=== PATIENT | male | born 1960 | race Two or more races ===

== ENCOUNTER 2017-06-12 17:23 | Emergency (ER) | payer MEDICAID ==
[~2017-06-12] VITALS: Ht 167.6 cm; Wt 59.9 kg
[2017-06-12 18:26] LABS: Eosinophils # (auto) 0.1 uL; Lymphocytes # (auto) 0.7 uL; Monocytes # (auto) 0.5 uL; Neutrophils # (auto) 5.3 uL; Nucleated Red Blood Cells % 0.1 %
[2017-06-12 18:28] LABS: Basophils # (auto) 0.1 uL; Basophils % (auto) 0.9 % (0.0-2.0); Hematocrit 43.1 % (41.0-53.0); Hemoglobin 14.4 g/dL (13.5-17.5); Mean Corpuscular Hemoglobin 33.6 pg (28.0-32.0); Mean Corpuscular Hgb Conc. 33.3 g/dL (32.0-36.0); Mean Corpuscular Volume 100.7 fL (80.0-100.0); Monocytes % (auto) 7.4 % (0.0-12.0); Neutrophils % (auto) 78.7 % (37.0-80.0); Platelet Count (auto) 349 10^3/uL (140-450); Red Blood Cells 4.28 10^6/uL (4.5-5.90); Red Cell Distribution Width 17.1 % (11.8-14.3); White Blood Cell 6.8 10^3/uL (4.4-10.8)
[2017-06-12 18:41] LABS: Albumin 3.1 g/dL (3.4-5.0); Calcium 8.5 mg/dL (8.5-10.1); Potassium 4.4 mmol/L (3.5-5.1)
[2017-06-12 18:49] LABS: BUN/Creatinine Ratio 3.2; Bilirubin, Total 0.5 mg/dL (0.2-1.0); Total Protein 7.5 g/dL (6.4-8.2)
[2017-06-12 22:27] VITALS: BP 140/77
== END 2017-06-12 22:29 | disposition left against medical advice (07) ==
LOC: ER 17:40
DX: M79.675 Pain in left toe(s) (principal); Z53.21 Procedure and treatment not carried out due to patient leaving prior to being seen by health care provider
CPT/HCPCS: 36415; 80053; 85025; 87040

== ENCOUNTER 2017-07-25 16:12 | Inpatient (IN) | payer MEDICARE, MEDICAID ==
[~2017-07-25] VITALS: Ht 167.6 cm; Wt 65.5 kg
[2017-07-25 16:48] LABS: Basophils # (auto) 0.1 uL; Basophils % (auto) 0.7 % (0.0-2.0); Eosinophils # (auto) 0.2 uL; Eosinophils % (auto) 2.3 % (0.0-7.0); Hematocrit 36.9 % (41.0-53.0); Hemoglobin 12.3 g/dL (13.5-17.5); Lymphocytes # (auto) 0.5 uL; Lymphocytes % (auto) 6.9 % (10.0-50.0); Mean Corpuscular Hemoglobin 32.4 pg (28.0-32.0); Mean Corpuscular Hgb Conc. 33.3 g/dL (32.0-36.0); Mean Corpuscular Volume 97.5 fL (80.0-100.0); Monocytes # (auto) 0.6 uL; Monocytes % (auto) 7.8 % (0.0-12.0); Neutrophils # (auto) 6.4 uL; Neutrophils % (auto) 82.3 % (37.0-80.0); Nucleated Red Blood Cells % 0.1 %; Platelet Count (auto) 338 10^3/uL (140-450); Red Blood Cells 3.78 10^6/uL (4.5-5.90); Red Cell Distribution Width 17.5 % (11.8-14.3); White Blood Cell 7.8 10^3/uL (4.4-10.8)
[2017-07-25 17:16] LABS: Albumin 2.3 g/dL (3.4-5.0); BUN/Creatinine Ratio 4.1; Bilirubin, Total 0.4 mg/dL (0.2-1.0); Calcium 10.4 mg/dL (8.5-10.1); Total Protein 7.3 g/dL (6.4-8.2)
[2017-07-25] MEDS ORDERED: ONDANSETRON HCL 4 MG/2 ML VIAL IV ONE (20:30)
[2017-07-25] MEDS ORDERED: MORPHINE SULFATE 4 MG/ML SYR/VIAL IV ONE (20:30)
[2017-07-25] MEDS ORDERED: DEXTROSE (50%) 50ML SYRG IV PRN (22:30)
[2017-07-25] MEDS ORDERED: PANTOPRAZOLE 40 MG/10 ML VIAL IV ONE (22:30)
[2017-07-25] MEDS ORDERED: TEMAZEPAM 15 MG CAP PO PRN (22:30)
[2017-07-25] MEDS ORDERED: ACETAMINOPHEN 325 MG TAB PO PRN (22:30)
[2017-07-25] MEDS ORDERED: cefTRIAXone 1GM/10ml IVPUSH 10 ML IV ONE (22:45)
[2017-07-25] MEDS: MORPHINE SULFATE 4 MG/ML SYR/VIAL IV PRN (22:55)
[2017-07-26] VITALS (9 sets, daily range): BP systolic 140–162; BP diastolic 58–88
[2017-07-26] MEDS: ACCU-CHEK COMFORT CURVE STRIP VI SCH ×4 (00:12→18:04)
[2017-07-26] MEDS ORDERED: diphenhdrAMINE HCL 50 MG/1 ML VL ONE (00:38)
[2017-07-26] MEDS ORDERED: diphenhdrAMINE HCL 50 MG/1 ML VL IV ONE (01:00)
[2017-07-26] MEDS: ONDANSETRON HCL 4 MG/2 ML VIAL IV PRN ×4 (02:29→23:10)
[2017-07-26] MEDS: HYDROcodone-ACET 5/325MG TAB PO PRN ×2 (02:30→09:10)
[2017-07-26] MEDS ORDERED: B-CO-6 OR (03:13)
[2017-07-26] MEDS ORDERED: METO25TA5 PO (03:13)
[2017-07-26] MEDS ORDERED: CALC0.5C PO (03:13)
[2017-07-26] MEDS ORDERED: NIFE60TA59 PO (03:13)
[2017-07-26] MEDS ORDERED: SEVE800T8 PO (03:13)
[2017-07-26] MEDS: MORPHINE SULFATE 4 MG/ML SYR/VIAL IV PRN ×2 (04:46→11:37)
[2017-07-26] MEDS: InsuLIN REG 1unit/0.01ml Soln (100units/ml) SC SCH ×4 (06:00→18:00)
[2017-07-26] MEDS: FUROSEMIDE 40 MG TAB PO SCH ×2 (06:35→17:01)
[2017-07-26 06:38] LABS: Basophils # (auto) 0.1 uL; Eosinophils # (auto) 0.3 uL; Eosinophils % (auto) 4.5 % (0.0-7.0); Hematocrit 33.4 % (41.0-53.0); Lymphocytes # (auto) 0.5 uL; Lymphocytes % (auto) 8.9 % (10.0-50.0); Mean Corpuscular Hemoglobin 32.2 pg (28.0-32.0); Mean Corpuscular Hgb Conc. 32.9 g/dL (32.0-36.0); Monocytes # (auto) 0.6 uL; Monocytes % (auto) 9.4 % (0.0-12.0); Neutrophils # (auto) 4.7 uL; Neutrophils % (auto) 76.2 % (37.0-80.0); Nucleated Red Blood Cells % 0.1 %; Platelet Count (auto) 321 10^3/uL (140-450); Red Blood Cells 3.41 10^6/uL (4.5-5.90); Red Cell Distribution Width 17.3 % (11.8-14.3); White Blood Cell 6.1 10^3/uL (4.4-10.8)
[2017-07-26 06:57] LABS: Calcium 9.4 mg/dL (8.5-10.1); Potassium 3.7 mmol/L (3.5-5.1)
[2017-07-26 07:06] LABS: BUN/Creatinine Ratio 4.1; Bilirubin, Total 0.4 mg/dL (0.2-1.0); Total Protein 6.3 g/dL (6.4-8.2)
[2017-07-26] MEDS: SEVELAMER 800 MG TAB PO SCH ×3 (08:41→17:01)
[2017-07-26] MEDS: cefTRIAXone 1GM/10ml IVPUSH 10 ML IV SCH (08:41)
[2017-07-26] MEDS: HEPARIN SODIUM (PORCINE) 5000 UNITS/ML 1ML VIAL SC SCH ×2 (09:10→22:26)
[2017-07-26] MEDS: NIFEdipine ER 30 MG TAB PO SCH (10:00)
[2017-07-26] MEDS ORDERED: CLOPIDOGREL BISULFATE 75 MG TAB PO SCH (10:00)
[2017-07-26] MEDS ORDERED: PANTOPRAZOLE 40 MG/10 ML VIAL IV SCH (10:00)
[2017-07-26] MEDS ORDERED: PERITONEAL DIALYSIS 2.5% SOLN 2,000 ML IP ONE (11:00)
[2017-07-26] MEDS: PERITONEAL DIALYSIS 2.5% SOLN 2,000 ML IP SCH ×2 (12:25→23:59)
[2017-07-26] MEDS: SUCRALFATE 1 GM TAB PO SCH ×2 (16:50→22:23)
[2017-07-26] MEDS: PERITONEAL DIALYSIS 1.5% SOLN 2,000 ML IP SCH (18:03)
[2017-07-26] MEDS: PANTOPRAZOLE 40 MG/10 ML VIAL IV SCH (22:23)
[2017-07-27] MEDS: ACCU-CHEK COMFORT CURVE STRIP VI SCH ×4 (00:17→18:00)
[2017-07-27 05:00] VITALS: BP 144/83
[2017-07-27] MEDS: InsuLIN REG 1unit/0.01ml Soln (100units/ml) SC SCH ×4 (06:00→18:00)
[2017-07-27] MEDS: PERITONEAL DIALYSIS 1.5% SOLN 2,000 ML IP SCH ×2 (06:07→18:00)
[2017-07-27] MEDS: FUROSEMIDE 40 MG TAB PO SCH ×2 (06:09→18:00)
[2017-07-27] MEDS: SUCRALFATE 1 GM TAB PO SCH ×3 (06:44→18:43)
[2017-07-27] MEDS ORDERED: LIDOCAINE VISCOUS 2% 15ML UD ONE (07:38)
[2017-07-27] MEDS ORDERED: NALOXONE HCL 0.4 MG/ML VIAL ONE (07:38)
[2017-07-27] MEDS ORDERED: FLUMAZENIL 0.1 MG/ML INJ 10ML MDV IV ONE (07:38)
[2017-07-27] MEDS ORDERED: SODIUM CHLORIDE LOCK 0 ML ONE (07:38)
[2017-07-27] MEDS ORDERED: diphenhdrAMINE HCL 50 MG/1 ML VL ONE (07:39)
[2017-07-27] MEDS ORDERED: MIDAZOLAM HCL 5 MG/ML-1ML VIAL ONE (07:39)
[2017-07-27] MEDS ORDERED: fentaNYL CITRATE 100 MCG/2 ML VL ONE (07:39)
[2017-07-27 08:15] VITALS: BP 116/71
[2017-07-27] MEDS: cefTRIAXone 1GM/10ml IVPUSH 10 ML IV SCH (08:55)
[2017-07-27] MEDS: SEVELAMER 800 MG TAB PO SCH ×3 (08:55→18:43)
[2017-07-27] MEDS: NIFEdipine ER 30 MG TAB PO SCH (10:00)
[2017-07-27] MEDS: HEPARIN SODIUM (PORCINE) 5000 UNITS/ML 1ML VIAL SC SCH (11:00)
[2017-07-27] MEDS: PANTOPRAZOLE 40 MG/10 ML VIAL IV SCH (11:01)
[2017-07-27 12:35] LABS: INR 1.05 (0.9-1.15); Partial Thromboplastin Time 37.7 sec (22.64-33.71); Prothrombin Time 11.4 sec (9.37-12.3)
[2017-07-27] MEDS: PERITONEAL DIALYSIS 2.5% SOLN 2,000 ML IP SCH (12:35)
[2017-07-27 12:46] VITALS: BP 113/60
[2017-07-27] MEDS: ONDANSETRON HCL 4 MG/2 ML VIAL IV PRN (13:01)
[2017-07-27] MEDS ORDERED: PANT40TA2 PO (16:00)
[2017-07-27] MEDS ORDERED: SUCR1TAB PO (16:00)
[2017-07-27 17:23] VITALS: BP 143/74
== END 2017-07-27 18:50 | disposition home or self-care (01) | DRG 383 ==
LOC: ER 16:18 → WEST WING 16:19
PROVIDERS: ADMIT Nurse Practitioner; ATTEND Internal Medicine
DX: K27.9 Peptic ulcer, site unspecified, unspecified as acute or chronic, without hemorrhage or perforation (principal); N18.6 End stage renal disease; E43 Unspecified severe protein-calorie malnutrition; E11.22 Type 2 diabetes mellitus with diabetic chronic kidney disease; E87.1 Hypo-osmolality and hyponatremia; I12.0 Hypertensive chronic kidney disease with stage 5 chronic kidney disease or end stage renal disease; K29.00 Acute gastritis without bleeding; D63.8 Anemia in other chronic diseases classified elsewhere; E78.5 Hyperlipidemia, unspecified; G47.00 Insomnia, unspecified; K52.9 Noninfective gastroenteritis and colitis, unspecified; R10.9 Unspecified abdominal pain; Z99.2 Dependence on renal dialysis; Z79.4 Long term (current) use of insulin; Z68.23 Body mass index [BMI] 23.0-23.9, adult
CPT/HCPCS: 36415; 71045; 74176; 80053; 82962; 83690; 84484; 85025; 85610; 85730; 87081; 87205; 89051; 93005; 94761; 96374; 96375; C9113; J2250; J2405

== ENCOUNTER 2018-06-15 16:40 | Emergency (ER) | payer MEDICARE, MEDICAID ==
[~2018-06-15] VITALS: Ht 172.7 cm; Wt 63.5 kg
[~2018-06-15 16:40] MED LIST: B-CO-6 OR; CALC0.5C PO; METO25TA5 PO; NIFE60TA59 PO; PANT40TA2 PO; SEVE800T8 PO; SUCR1TAB PO
[2018-06-15 18:39] LABS: Nucleated Red Blood Cells % 0.1 %
[2018-06-15 18:41] LABS: Basophils # (auto) 0 uL; Basophils % (auto) 0.6 % (0.0-2.0); Eosinophils # (auto) 0.3 uL; Eosinophils % (auto) 3.3 % (0.0-7.0); Hematocrit 41.3 % (41.0-53.0); Hemoglobin 13.6 g/dL (13.5-17.5); Lymphocytes % (auto) 12.7 % (10.0-50.0); Mean Corpuscular Hgb Conc. 32.8 g/dL (32.0-36.0); Mean Corpuscular Volume 103.5 fL (80.0-100.0); Monocytes # (auto) 0.8 uL; Monocytes % (auto) 10.5 % (0.0-12.0); Neutrophils # (auto) 5.7 uL; Neutrophils % (auto) 72.9 % (37.0-80.0); Platelet Count (auto) 311 10^3/uL (140-450); Red Blood Cells 3.99 10^6/uL (4.5-5.90); Red Cell Distribution Width 19.4 % (11.8-14.3); White Blood Cell 7.8 10^3/uL (4.4-10.8)
[2018-06-15 18:54] LABS: Calcium 8.2 mg/dL (8.5-10.1); Potassium 4.5 mmol/L (3.5-5.1)
[2018-06-15 18:57] LABS: BUN/Creatinine Ratio 3.1; Bilirubin, Total 0.4 mg/dL (0.2-1.0); Total Protein 7.2 g/dL (6.4-8.2)
[2018-06-15] MEDS ORDERED: SODIUM CHLORIDE 0.9% 1,000 ML IV ONE (23:15)
[2018-06-15] MEDS ORDERED: metroNIDAZOLE 500MG/100ML 100 ML IV ONE (23:15)
[2018-06-15] MEDS ORDERED: cefTRIAXone 1GM/50ML D5W 50 ML IV ONE (23:15)
[2018-06-16] MEDS ORDERED: methylPREDNISolone SOD SUCC 125 MG/2 ML VL IV ONE (00:45)
[2018-06-16] MEDS ORDERED: FAMOTIDINE (10MG/ML) 2ML VL IV ONE (00:45)
[2018-06-16] MEDS ORDERED: LORazepam 0.5 MG TAB PO ONE (02:00)
[2018-06-16 04:02] VITALS: BP 140/87
== END 2018-06-16 04:10 | disposition home or self-care (01) ==
LOC: ER 16:48
DX: K52.9 Noninfective gastroenteritis and colitis, unspecified (principal); E11.22 Type 2 diabetes mellitus with diabetic chronic kidney disease; I12.0 Hypertensive chronic kidney disease with stage 5 chronic kidney disease or end stage renal disease; N18.6 End stage renal disease; E78.5 Hyperlipidemia, unspecified; Z99.2 Dependence on renal dialysis; Z79.899 Other long term (current) drug therapy
CPT/HCPCS: 36415; 74176; 80053; 83690; 85025; 87045; 87899; 93005; 94761; 96365; 96367; 96375; 99284; J0696; J2930; J3490; J7030

== ENCOUNTER → 2019-10-03 | Emergency (ER) | payer MEDICARE, MEDICAID ==
[~2019-10-03] VITALS: Ht 170.2 cm; Wt 59.0 kg
[~2019-10-03] MED LIST changes: +NIFE1TAB30 PO; -NIFE60TA59 PO; +PIPERACILLIN-TAZOB 3.375GM 100 ML IV ONE
[2019-10-03 18:05] LABS: Alanine Aminotransferase 12 U/L (16-61); Albumin 1.5 g/dL (3.4-5.0); Anion Gap 19 (5-15); Basophils # (auto) 0.1 10 ^3/uL (0-0.2); Blood Urea Nitrogen 77 mg/dL (7-18); Calcium 8.7 mg/dL (8.5-10.1); Carbon Dioxide 23 mmol/L (21-32); Chloride 91 mmol/L (98-107); Eosinophils # (auto) 0.3 10 ^3/uL (0-0.8); Glucose 146 mg/dL (74-106); Hematocrit 31.4 % (41.0-53.0); Hemoglobin 10.1 g/dL (13.5-17.5); Lymphocytes # (auto) 0.5 10 ^3/uL (0.4-5.4); Mean Corpuscular Hemoglobin 31.6 pg (28.0-32.0); Mean Corpuscular Hgb Conc. 32.1 g/dL (32.0-36.0); Mean Corpuscular Volume 98.4 fL (80.0-100.0); Monocytes # (auto) 0.8 10 ^3/uL (0-1.3); Neutrophils # (auto) 7.4 10 ^3/uL (1.6-8.6); Platelet Count (auto) 428 10^3/uL (140-450); Potassium 4.4 mmol/L (3.5-5.1); Red Blood Cells 3.19 10^6/uL (4.5-5.90); Red Cell Distribution Width 18.1 % (11.8-14.3); Sodium 133 mmol/L (136-145)
[2019-10-03 18:10] LABS: Alkaline Phosphatase 202 U/L (45-117); Aspartate Aminotransferase 25 U/L (15-37); BUN/Creatinine Ratio 4.9; Bilirubin, Total 0.4 mg/dL (0.2-1.0); GFR African American 4 mL/min; GFR Non-African American 3 mL/min; Total Protein 6.4 g/dL (6.4-8.2)
[2019-10-03 18:29] VITALS: BP 134/62
== END | disposition home or self-care (01) ==
LOC: ER 16:25
DX: N48.5 Ulcer of penis (principal); I95.9 Hypotension, unspecified; E78.5 Hyperlipidemia, unspecified; I12.0 Hypertensive chronic kidney disease with stage 5 chronic kidney disease or end stage renal disease; E11.22 Type 2 diabetes mellitus with diabetic chronic kidney disease; N18.6 End stage renal disease; Z79.899 Other long term (current) drug therapy
CPT/HCPCS: 36415; 71045; 80053; 84484; 85025; 96365; 99284; J2543